=== PATIENT | male | born 1980 | race African-American/Black ===

== ENCOUNTER 2017-08-18 12:12 | Emergency (ER) | payer OTHER ==
[~2017-08-18] VITALS: Ht 175.3 cm; Wt 98.9 kg
[~2017-08-18 12:12] MED LIST: ALLEGRA-D 121 TABLET PO; FLEXERIL10 MG PO; FLONASE16 G1 BOTH NARES; MOTRIN600 MG PO; PREDNISONE50 MG PO; ZOFRAN ODT4 MG PO
[2017-08-18 12:38] LABS: HEMATOCRIT 45.6 % (38.0-50.0); HEMOGLOBIN 15.9 G/DL (12.5-16.6); MCH 27.8 PG (29.0-34.0); MCHC 34.9 G/DL (30.0-36.0); MCV 79.9 FL (86-99); PLATELET COUNT 234 K/uL (156-360); RBC DIS.WIDTH-CV 12.4 % (11.8-14.6); RBC DIS.WIDTH-SD 35.4 % (39-53); RED BLOOD COUNT 5.71 M/uL (4.00-5.50); WHITE BLOOD COUNT 5.2 K/uL (4.1-10.2)
[2017-08-18 12:53] LABS: CHLORIDE 105 mEq/L (99-109); POTASSIUM 4.5 mEq/L (3.7-5.4); SODIUM 139 mEq/L (136-147)
[2017-08-18 12:54] LABS: GLUCOSE 85 mg/dL (70-99)
[2017-08-18 12:56] LABS: SOURCE URINE
[2017-08-18 12:58] LABS: CREATININE 1.1 mg/dL (0.6-1.3); GFR ESTIMATE (CALCULATED) > 59 mL/min/ (58.99-99999)
[2017-08-18 12:59] LABS: UREA NITROGEN (BUN) 12 mg/dL (9-23)
[2017-08-18 13:06] LABS: APPEARANCE CLEAR ((CLEAR)); BILIRUBIN NEGATIVE; BLOOD NEGATIVE; COLOR STRAW ((YELLOW)); GLUCOSE (STRIP) NEGATIVE; KETONES NEGATIVE; LEUKOCYTES NEGATIVE; NITRITE NEGATIVE; PROTEIN (STRIP) NEGATIVE; SPECIFIC GRAVITY 1.006 (1.000-1.030); UROBILINOGEN 0.2 MG/DL (0.2-1.0)
[2017-08-18] MEDS ORDERED: NAPROSYN500 MG PO (14:51)
[2017-08-18] MEDS ORDERED: FLEXERIL10 MG PO (14:51)
[2017-08-18 14:57] VITALS: BP 00/00
[2017-08-21 13:13] LABS: CHLAMYDIA TRACHOMATIS NEGATIVE; NEISSERIA GONORRHOEAE NEGATIVE
== END 2017-08-18 14:58 | disposition home or self-care (01) ==
LOC: EME 12:12
PROVIDERS: Emergency Medicine
DX: M54.5 Low back pain (principal); R21 Rash and other nonspecific skin eruption
CPT/HCPCS: 80048; 81003; 85027; 87086; 87491; 87591; 99281; 99284